=== PATIENT | female | born 1960 | race Caucasian/White ===

== ENCOUNTER → 2020-08-03 | Outpatient (CLI) | payer BC | LOC: US 07:42 | DX: M25.569 Pain in unspecified knee (principal); M25.559 Pain in unspecified hip; M79.605 Pain in left leg; M17.0 Bilateral primary osteoarthritis of knee; M16.0 Bilateral primary osteoarthritis of hip | CPT/HCPCS: 73522; 73564; 93971 ==

== ENCOUNTER → 2021-07-04 | Outpatient (CLI) | payer OTHER | LOC: KOH-I 12:42 | DX: S49.92XA Unspecified injury of left shoulder and upper arm, initial encounter (principal); M19.032 Primary osteoarthritis, left wrist; M81.0 Age-related osteoporosis without current pathological fracture | CPT/HCPCS: 73030; 73060; 73070; 73110; 73130 ==

== ENCOUNTER → 2021-07-28 | Outpatient (CLI) | payer BC | LOC: KOH-I 09:23 | DX: J20.9 Acute bronchitis, unspecified (principal) | CPT/HCPCS: 71046 ==